=== PATIENT | female | born 1955 | race Caucasian/White ===

== ENCOUNTER 2016-12-22 14:22 | Emergency (ER) | payer OTHER ==
[~2016-12-22] VITALS: Ht 175.3 cm; Wt 118.2 kg
[2016-12-22 14:38] VITALS: BP 168/85; PULSE 92; RESP 18; O2SAT 96
--- NOTE | 2016-12-22 15:47 | DRSVH ---
PROCEDURE: X-RAY RIGHT WRIST COMPLETE, MINIMUM THREE VIEWS ([id number]) INDICATIONS: deformed TECHNIQUE: 34views of the wrist were acquired. COMPARISON: None. FINDINGS: Bones: There is a comminuted intra-articular fracturing distal radial metaphysis with dorsal displace ment. No suspicious bony lesions. Scaphoid view: Scaphoid appears intact Soft tissues: No suspicious soft tissue calcifications. Soft tissue swelling noted. IMPRESSION: Comminuted intra-articular distal radial metaphyseal fracture. Dictated by: Brittney Rao M.D. on 12/22/2016 at 15:45 Approved by: Brittney Rao M.D. on 12/22/2016 at 15:46
--- NOTE | 2016-12-22 16:52 | ED.REPORT ---
HPI-Extremity Problem Upper Date of Service Dec 22, 2016 ED Provider: Doc,Ed MD History of Present Illness: 61-year-old female here for right wrist pain. PT fell just [employer], she tripped over a raised flower bed box at a local nursery on to her palm. She has had medial wrist pain and thumb pain since. Some numbness in her thumb but she has full range of motion with pain of her fingers. No previous injuries to her wrist Nursing Notes Stated Complaint: RIGHT ARM PAIN Chief Complaint: Extremity Trauma Nursing Notes Reviewed: Yes Allergies: Coded Allergies: Penicillins (Verified Allergy, Severe, Anaphylaxis, 12/22/16) General Time Seen by MD: 16:51 Chief Complaint Wrist injury right Hx Obtained From: Patient Arrived By: Walk-in Onset Occurred: Just prior to arrival Symptom Duration: Since onset Caused by: Fall on ground Location: : Wrist right Severity: Current: Moderate Severity: Maximum: Moderate Exacerbated by: Range of motion Relieved by: Rest Recent Healthcare: No recent doctor visit Similar Sx Previous: No Past Medical History Past Medical History Notes: pre diabetes Review of Systems Basic Review of Systems Eyes: Vision NL ENT: Hearing NL Psychiatric: Normal thought content Musculoskeletal: Reports: Extremity pain, Joint pain Complete sys rev & neg: except as marked. Physical Exam Initial Vital Signs Vital Signs (First) Date Time Temp Pulse Resp B/P Pulse Ox O2 Delivery O2 Flow Rate FiO2 12/22/16 14:38 36.5 92 18 168/85 96 Room Air Initial VS: Reviewed, Vital signs normal General/Constitutional: Well-developed, Well-nourished Head / Eyes: Atraumatic, Normocephalic, PERRL ENT: Conjunctiva normal Neck: Supple, Non-tender, Full range of motion Respiratory: Breath sounds normal, Clear to auscultation, No respiratory distress Cardiovascular: Regular rate & rhythm, Heart sounds normal, Intact distal pulses Skin: Warm, Dry, No cyanosis Neurologic: Alert, Oriented, Nonfocal Psychiatric: Mood/affect normal, Behavior normal, Normal thought content Right Wrist: Positive: Deformity present..., ROM reduced, Swelling present... ( Mild), Tenderness present... (Moderate) obvious deformity to R wrist. Tender over thumb, radial aspect of wrist. small abrasian over medial wrist. Interpretation & Diagnostics Interpretation & Diagnostics: IMPRESSION: Comminuted intra-articular distal radial metaphyseal fracture. Re-Eval/Medical Decision Med Decision/Clinical Course Discussed fracture with Dr. Anel judd education department chair. Kadi solis and contact office in the morning. Discharge & Departure Shift Change Sign-Out Imaging Studies: Imaging discussed Impression: Primary Impression: Distal radius fracture, right Encounter type: initial encounter Fracture type: closed Fracture morphology : unspecified fracture morphology Qualified Code: S52.501A - Unspecified fracture of the lower end of right radius, initial encounter for closed fracture Disposition: Home Discharge Condition Condition: Stable Patient Instructions: Splint Care (ED), Wrist Fracture in Adults (ED) Additional Instructions: Use ice and take ibuprofen for pain. Keep arm in sling and splint. Follow-up with orthopedic in the morning. Return if pain becomes severe, he gets fevers, or any worsening condition Referrals: Felicitas Todd (PCP) Paul Tam MD EDSupervising Provider for APC: Wesly Mclean MD, Linnea K ARNP Dec 22, 2016 16:52
[2016-12-22] MEDS ORDERED: Ketorolac 30 mg/mL 2 mL Inj IM ONE (17:30)
[2016-12-22] MEDS ORDERED: HYDROcodone-APAP 5-325 mg Tablet PO ONE ×2 (18:15→18:25)
[2016-12-22 19:10] VITALS: BP 144/75; PULSE 82; RESP 18; O2SAT 96
[2016-12-22] MEDS ORDERED: HYDROcodone-APAP 5-325 mg Tablet PO PRN (19:20)
[2016-12-22] MEDS ORDERED: _HYDROcodone/APAP 5-325 mg Tablet PO PRN (19:25)
== END 2016-12-22 19:49 | disposition home or self-care (01) ==
LOC: SED 14:22
DX: S52.591A Other fractures of lower end of right radius, initial encounter for closed fracture (principal); W01.0XXA Fall on same level from slipping, tripping and stumbling without subsequent striking against object, initial encounter; Y92.513 Shop (commercial) as the place of occurrence of the external cause; Y93.89 Activity, other specified; Y99.8 Other external cause status; Z88.0 Allergy status to penicillin
CPT/HCPCS: 29125; 73110; 96372; 99284; J1885